=== PATIENT | male | born 1955 | race Caucasian/White ===

== ENCOUNTER 2020-06-03 12:37 | Emergency (ER) | payer SELFPAY ==
[~2020-06-03] VITALS: Ht 165.1 cm; Wt 70.0 kg
[2020-06-03] MEDS ORDERED: BACITRACIN ZINC OINT UDPKT TOP ONE (13:45)
[2020-06-03] MEDS ORDERED: ACETAMINOPHEN WITH CODEINE 300/30MG TABLET PO ONE (13:45)
[2020-06-03] MEDS ORDERED: IOHEXOL-300 100 ML BOTTLE ONE (14:14)
[2020-06-03 14:38] VITALS: BP 160/88
== END 2020-06-03 14:39 | disposition home or self-care (01) ==
LOC: ER 13:02
DX: S00.93XA Contusion of unspecified part of head, initial encounter (principal); S50.312A Abrasion of left elbow, initial encounter; M54.5 Low back pain; V03.10XA Pedestrian on foot injured in collision with car, pick-up truck or van in traffic accident, initial encounter; Y93.89 Activity, other specified; Y92.89 Other specified places as the place of occurrence of the external cause; Y99.8 Other external cause status
CPT/HCPCS: 70450; 72100; 73080; 99284; Q9967